=== PATIENT | female | born 1975 | race Two or more races ===

== ENCOUNTER 2019-09-29 13:26 | Emergency (ER) | payer OTHER ==
[~2019-09-29] VITALS: Ht 157.5 cm; Wt 63.5 kg
== END 2019-09-29 18:02 | disposition home or self-care (01) ==
LOC: ER 13:26
DX: S00.83XA Contusion of other part of head, initial encounter (principal); S80.12XA Contusion of left lower leg, initial encounter; W18.39XA Other fall on same level, initial encounter; Y93.89 Activity, other specified; Y92.59 Other trade areas as the place of occurrence of the external cause; Y99.8 Other external cause status